=== PATIENT | male | born 1970 | race Native Hawaiian/Other Pacific Islander ===

== ENCOUNTER 2018-05-22 13:31 | Emergency (ER) | payer OTHER ==
--- NOTE | 2018-05-22 13:36 | ED Physician Documentation ---
General Adult - HISTORIAN Historian: patient - HPI Stated Complaint: rash on left shouer and arm x 4 days Chief Complaint: Skin Rash Onset: days ago (4) Timing: still present Severity: moderate Further Comments: yes (he states the rash started Wed and he had pain orginally then the blisters came after. He is not sure if he had the chicken pox his brother said he did. He denies any other complaints) Last known Well Code/Unknown Code: Unknown - ROS CONST: no problems EYES/ENT: none CVS/RESP: none GI/: none MS/SKIN/LYMPH: rash NEURO/PSYCH: headache - PAST HX Past History: none Other History: none Surgeries/Procedures: none Immunizations: UTD Allergies/Adverse Reactions: Allergies Allergy/AdvReac Type Severity Reaction Status Date / Time No Known Allergies Allergy Verified 05/22/18 13:52 Home Medications: Ambulatory Orders Medication Instructions Recorded NK 05/22/18 - SOCIAL HX Smoking History: non-smoker Alcohol Use: none Drug Use: none - FAMILY HX Family History: No - REVIEWED ASSESSMENTS Nursing Assessment Reviewed: Yes Vitals Reviewed: Yes General Adult Physical Exam - PHYSICAL EXAM GENERAL APPEARANCE: no distress EENT: eye inspection normal, no signs of dehydration NECK: normal inspection RESPIRATORY: no resp distress CVS: reg rate & rhythm, heart sounds normal RECTAL: normal exam BACK: normal inspection SKIN: warm/dry, other (patchy vesicles on left upper back and one patch on left upper arm ) EXTREMITIES: non-tender, normal range of motion, no evidence of injury, no edema NEURO: oriented X3 Discharge Clincal Impression: Shingles Qualifiers: Herpes zoster complications: without complications Qualified Code(s): B02.9 - Zoster without complications Referrals: Primary Doctor,No [Primary Care Provider] - 2 Days Comments: 1. Acyclovir 800 mg take 1 by mouth five times per day x 7 days 2. Medrol dose pack - as directed 3. Tramadol 50 mg take 1 by mouth every 8 hours as needed for pain 4. Neurontin 100 mg take 1 by mouth three times per day x 10 days 5. Watch for symptoms of infection - redness, increased swelling 6. Follow up with PCP in 2-4 days 7. Return to ER for any increasing concerns Condition: Stable Disposition: 01 HOME, SELF-CARE Decision to Admit: NO Date of Decison to Admit: 05/22/18 Decision Time: 13:59
[2018-05-22 13:51] VITALS: BP 144/84
== END 2018-05-22 14:10 | disposition home or self-care (01) ==
LOC: ED 13:31
DX: B02.9 Zoster without complications (principal)
CPT/HCPCS: 99281; 99283

== ENCOUNTER 2018-05-30 09:54 | Outpatient (CLI) | payer OTHER | END 2018-05-30 09:55 | LOC: LAB 09:54 | PROVIDERS: ATTEND Podiatrist Foot & Ankle Surgery | DX: B35.1 Tinea unguium (principal); Z86.19 Personal history of other infectious and parasitic diseases | CPT/HCPCS: 36415; 80076 ==

== ENCOUNTER 2018-06-08 21:58 | Emergency (ER) | payer OTHER ==
[2018-06-08] MEDS ORDERED: ACYCLOVIR 200 MG CAPSULE PO ONE (22:59)
[2018-06-08] MEDS ORDERED: traMADol HCL 50 MG TABLET PO ONE (22:59)
[2018-06-08] MEDS ORDERED: GABAPENTIN 100 MG CAPSULE PO ONE (22:59)
--- NOTE | 2018-06-08 23:09 | ED Physician Documentation ---
Skin Rash - HISTORIAN Historian: patient - HPI Stated Complaint: shingles Chief Complaint: Skin Rash Additional Information: Patient presents to ED with worsening painful rash. Patient was diagnosed with shingles on May 22. He took the medications as prescribed and the rash/pain improved, however, over the past 2 days the pain/rash has returned. Patient has vesicle type rash on T2 dermatone on back, left arm and chest. He reports numbness and tingling in his hand. Onset: days ago (2) Timing: still present Duration: worse Location: LUE, L axillary Quality: painful, burning Where: home Context: Medication Exposure: none Context: Food Exposure: none Further Comments: no - ROS CONST: none CVS/RESP: none EYES/ENT: none GI/: none MS/SKIN/LYMPH: none NEURO/PSYCH: none - PAST HX Past History: none Other History: none Allergies/Adverse Reactions: Allergies Allergy/AdvReac Type Severity Reaction Status Date / Time No Known Allergies Allergy Verified 06/08/18 22:51 Home Medications: Ambulatory Orders Medication Instructions Recorded NK 05/22/18 - SOCIAL HX Smoking History: non-smoker Alcohol Use: none Drug Use: none - FAMILY HX Family History: none - VITAL SIGNS Vital Signs: Vital Signs Temp Pulse Resp BP Pulse Ox 99.1 F 100 H 20 116/79 96 06/08/18 22:42 06/08/18 22:42 06/08/18 22:42 06/08/18 22:42 06/08/18 22:42 - REVIEWED ASSESSMENTS Nursing Assessment Reviewed: Yes Vitals Reviewed: Yes ED Results Lab/Radiology - Orders Orders: ED Orders Category Date Time Status Acyclovir [Zovirax] Med 06/08/18 22:59 Discontinued 800 mg PO NOW ONE Gabapentin [Neurontin] Med 06/08/18 22:59 Discontinued 100 mg PO NOW ONE traMADol HCL [Ultram] Med 06/08/18 22:59 Discontinued 50 mg PO NOW ONE Skin Rash Physical Exam - EXAM General Appearance: alert Skin: warm,dry Location: chest, back, extremities (left arm/axilla) Character: vesicular, erythematous Symptoms: warmth Extremities: non-tender EENT: eyes nml inspection Neck: no swelling Respiratory: no resp distress, breath sounds normal CVS: reg. rate & rhythm, heart sounds nml Abdomen: non-tender Neuro/Psych: oriented x3, motor nml Discharge Clincal Impression: Herpes zoster Qualifiers: Herpes zoster complications: without complications Qualified Code(s): B02.9 - Zoster without complications Referrals: Primary Doctor,No [Primary Care Provider] - 2 Days Additional Instructions: 1. Take Gabapentin, Tramadol, Valcyclovir as prescribed 2. Follow up with PCP within 1 week 3. Return to ER for new or worsening symptoms Condition: Stable Disposition: 01 HOME, SELF-CARE Decision to Admit: NO Date of Decison to Admit: 06/08/18 Decision Time: 23:12
[2018-06-08 23:18] VITALS: BP 108/72
== END 2018-06-08 23:16 | disposition home or self-care (01) ==
LOC: ED 21:58
DX: B02.9 Zoster without complications (principal)
CPT/HCPCS: 99282; 99283